=== PATIENT | male | born 1965 | race Two or more races ===

== ENCOUNTER 2020-01-13 11:52 | Day surgery (SDC) | payer OTHER ==
[2020-01-13] VITALS (11 sets, daily range): BP systolic 93–145; BP diastolic 66–94
[~2020-01-13] VITALS: Ht 180.3 cm; Wt 81.6 kg
--- NOTE | 2020-01-13 07:20 | Pre-Procedure Note/Attestation ---
Pre-Procedure Note/Attestation Complete Prior to Procedure Planned Procedure: right Procedure Narrative: wrist orif Indications for Procedure Pre-Operative Diagnosis: right wrist fracture Attestation I attest that I discussed the nature of the procedure; its benefits; risks and complications; and alternatives (and the risks and benefits of such alternatives ), prior to the procedure, with the patient (or the patient's legal artist's representative). I attest that, if there was a reasonable possibility of needing a blood transfusion, the patient (or the patient's legal artist's representative) was given the [facility] standardized written summary, pursuant to the Prakash Edmar Blood Safety Act ([place] Health and Safety Code # 1645, as amended). I attest that I re-evaluated the patient just prior to the surgery and that there has been no change in the patient's H&P, except as documented below: Dany Dunn MD January 13, 2020 07:20
--- NOTE | 2020-01-13 07:21 | Operative Note - PDOC ---
Operative Note Operative Note Pre-op Diagnosis: right wrist fracture Procedure: see op report Post-op Diagnosis: same as pre-op plus Operative Findings: consistent w/pre-op dx studies Anesthesia: regional Specimen: none Complications: none Condition: stable Estimated Blood Loss: none Implant(s) used?: Yes Dany Dunn MD January 13, 2020 07:21
[~2020-01-13 11:52] MED LIST: D5 1/2NS 1,000 ML IV SCH; HYDROcodone/Acetamin 5/325 tab ORAL PRN; HYDROmorphone 1mg/ml Carpuject SUBQ PRN; Tylenol #3 tab (300mg/30mg) ORAL PRN; ceFAZolin 1gm IVPB IVPB ONE; celeBREX 200mg Cap **SURGERY PATIENTS ONLY ORAL ONE; oxyCONTIN 20mg tab ORAL ONE
[2020-01-13] MEDS ORDERED: ALEVE220 MG PO (12:43)
[2020-01-13] MEDS ORDERED: FISH OIL CAP1000 MG ORAL (12:46)
[2020-01-13] MEDS ORDERED: MAGNESIUM400 M2 PO (12:46)
[2020-01-13] MEDS ORDERED: celeBREX 200mg Cap **SURGERY PATIENTS ONLY ORAL ONE (13:18)
[2020-01-13] MEDS ORDERED: oxyCONTIN 20mg tab ORAL ONE (13:18)
[2020-01-13] MEDS ORDERED: Midazolam 2mg/2ml Inj ONE (15:02)
[2020-01-13] MEDS ORDERED: Lidocaine 1% MPF 10mg/ml 5ml ONE (15:02)
[2020-01-13] MEDS ORDERED: fentaNYL 100 mcg/2 mL IV ONE ×2 (15:02→16:27)
[2020-01-13] MEDS ORDERED: Bupivacaine 0.25% Inj 30ml INJ ONE ×2 (15:35→15:39)
--- NOTE | 2020-01-13 15:39 | Anethesia Preoperative Eval ---
Anesthesia Pre-op PMH/ROS General Date of Evaluation: January 13, 2020 Time of Evaluation: 15:38 Anesthesiologist: nilay ASA Score: ASA 2 Mallampati Score Class I : Soft palate, uvula, fauces, pillars visible Class II: Soft palate, uvula, fauces visible Class III: Soft palate, base of uvula visible Class IV: Only hard plate visible Mallampati Classification: Class II Surgeon: micki Diagnosis: wrist fx Surgical Procedure: Right wrist ORIF Social History: smoking, current smoker Family History: no anesthesia problems Allergies: Coded Allergies: No Known Allergies (Unverified , 01/13/20) Medications: see eMAR Patient NPO?: Yes NPO Date: January 13, 2020 NPO Time: 00:01 Past Medical History Cardiovascular: Denies: HTN, CAD, RI, valve dz, arrhythmia, other Pulmonary: Denies: asthma, COPD, SHAY, other Gastrointestinal/Genitourinary: Reports: GERD; Denies: CRI, ESRD, other Neurologic/Psychiatric: Denies: dementia, CVA, depression/anxiety, TIA, other Endocrine: Denies: DM, hypothyroidism, steroids, other HEENT: Denies: cataract (L), cataract (R), glaucoma, YSLETA DEL SUR (L), YSLETA DEL SUR (R), other Hematology/Immune: Denies: anemia, DVT, bleeding disorder, other Other: obesity PSxH Narrative: leg surgery - no complication Anesthesia Pre-op Phys. Exam Physician Exam Last Vital Signs Date Time Temp Pulse Resp B/P (MAP) Pulse Ox O2 Delivery O2 Flow Rate FiO2 01/13/20 12:40 Room Air 01/13/20 12:35 97.0 63 18 137/87 99 Constitutional: NAD Neurologic: CN 2-12 intact Cardiovascular: RRR Respiratory: CTA Gastrointestinal: S/NT/ND Airway Exam Mallampati Classification 2 Mallampati Score: Class II MO: full ROM: full Dentures: no upper, no lower Anesthesia Pre-op A/P Studies Pre-op Studies: EKG - sr Risk Assessment & Plan Assessment: denies sob Plan: general and axilllary block Status Change Before Surgery: No Pre-Antibiotics Drug: ancef Time Given: 16:00 Karlie Cosby CRNA January 13, 2020 15:39
[2020-01-13] MEDS ORDERED: Metoclopramide 10mg/2ml Inj IVP PRN (15:45)
[2020-01-13] MEDS ORDERED: Labetalol 5mg/ml 20ml vial IV PRN (15:45)
[2020-01-13] MEDS ORDERED: fentaNYL 100 mcg/2 mL IV PRN (15:45)
[2020-01-13] MEDS ORDERED: Hydromorphone 0.5mg/0.5ml inj IVP PRN (15:45)
[2020-01-13] MEDS ORDERED: DiphenhydrAMINE 50mg/ml Inj IVP PRN (15:45)
[2020-01-13] MEDS ORDERED: Sterile Water Irrig 1000ml IRRIG ONE (16:00)
[2020-01-13] MEDS ORDERED: LR 1000ml ONE (16:00)
[2020-01-13] MEDS ORDERED: NS Irrig 1000ml IRRIG ONE (16:44)
[2020-01-13] MEDS ORDERED: Ropivacaine 5mg/ml Vial 20ml INJ ONE (17:03)
[2020-01-13] MEDS ORDERED: Metoclopramide 10mg/2ml Inj ONE (17:03)
--- NOTE | 2020-01-13 18:28 | Immediate Post-Op Evaluation ---
Immediate Post-Op Evalulation Immediate Post-Op Evalulation Procedure: wrist ORIF Date of Evaluation: January 13, 2020 Time of Evaluation: 18:25 IV Fluids: 500 Blood Pressure Systolic: 124 Blood Pressure Diastolic: 66 Pulse Rate: 70 Respiratory Rate: 14 O2 Sat by Pulse Oximetry: 99 Temperature (Fahrenheit): 97.3 Nausea: No Vomiting: No Complications none Patient Status: awake, reacts, patent Hydration Status: adequate Drug: ancef Given Within 1 Hr of Incision: Yes Time Given: 15:35 Karlie Cosby CRNA January 13, 2020 18:28
[2020-01-13] MEDS ORDERED: Acetaminophen (Non formulary) 100 ML IV ONE (18:30)
--- NOTE | 2020-01-14 01:30 | Operative Note - Dictated ---
DATE OF OPERATION: 01/13/2020 POSTOPERATIVE DIAGNOSIS: Right comminuted intra-articular distal radius fracture with dorsal angulation. POSTOPERATIVE DIAGNOSIS: Right comminuted intra-articular distal radius fracture with dorsal angulation. PROCEDURES: 1. Open reduction and internal fixation, right distal radius, with plate and screw fixation. 2. 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 SURGEON: Dany Dunn MD ANESTHESIA: General. INDICATION FOR PROCEDURE: The patient is a pleasant 54-year-old gentleman with a displaced intra-articular distal radius fracture, indicative of operative fixation. Risks, limitations, expectations, and complications of procedure were discussed in detail including continued pain, need for future surgery, risk of anesthesia, medical complications, DVT, PE, and mortality risks. All questions were addressed. DESCRIPTION OF PROCEDURE: After informed consent obtained, patient was taken to the operating room. Patient was placed under general anesthesia. Right arm was prepped and draped in a sterile manner. Time-out was performed. Standard anterior volar approach to the distal radius was performed. Once the volar surface of the radius was identified, the previous fracture site was identified. There is a already callus formation identified. At this point, using multiple techniques, the previous fracture site was teased out using combination of multiple instruments, volar osteotomy of distal radius was performed. Given the fact that this was 3 weeks old, I was able to obtain neutral alignment just relatively acceptable particularly given the fact that it was a comminuted fracture. At this point, [employer] plate was then selected and placed. It was difficult because the fracture site was right where the trajectory of the screws were. The plate was placed as distal as possible and make sure it was right on the subchondral bone. Additional cortical shaft screws were then placed. At this point, there was slight motion of the distal fracture site, loss of maybe fixation of the volar fragment and therefore 2 K-wires were placed percutaneous to the radial styloid into the fracture, into the shaft of the radius. Once these 2 K-wires were placed, there was no further motion along the distal fracture fragment. At this point, any attempt to further place the plate distal would violate the subcortical bone. Given the comminuted nature of this fracture, concern was that we lose acceptable fixation and reduction for minmal improvement. Therefore, it was felt that this was adequate. Particularly given the complexity of the fracture pattern and chronicity of the injury, at this point, the wound was copiously irrigated. The skin was closed using 3-0 Vicryl and 3-0 Monocryl sutures. Posterior splint was applied. Patient was awoken and taken to recovery room with stable vital signs. ESTIMATED BLOOD LOSS: None. COMPLICATIONS: None. SPECIMENS: None. IMPLANTS: Include [employer] volar plate. Dany Dunn M.D. DR: FLAKO JOB#: [id number] CC: FABIO
[2020-01-16 07:37] VITALS: BP 148/77
--- NOTE | 2020-01-16 07:37 | 48 Hour Post Anesthesia Eval ---
Post Anesthesia Evaluation Procedure: wrist ORIF Date of Evaluation: Jan 16, 2020 Time of Evaluation: 07:35 Blood Pressure Systolic: 148 0: 77 Pulse Rate: 65 Respiratory Rate: 14 O2 Sat by Pulse Oximetry: 98 Airway: patent Nausea: No Vomiting: No Pain Intensity: 2 Hydration Status: adequate Cardiopulmonary Status: stable Mental Status/LOC: patient returned to baseline Post-Anesthesia Complications: none Follow-up care needed: N/A Karlie Cosby CRNA Jan 16, 2020 07:37
--- NOTE | 2020-01-16 11:15 | Diagnostic Imaging Report ---
INDICATION: Pain, intraoperative TECHNIQUE: Intraoperative imaging Fluoroscopy time: 80.8 seconds Total dose: 0.28108 mGym2 Total number of images: 3 COMPARISON: None FINDINGS: 6 intraoperative images document surgical repair of distal radial fracture with sideplate and screws and K wires. IMPRESSION: Intraoperative imaging, as described
--- NOTE | 2020-02-06 13:20 | Diagnostic Imaging Report ---
INDICATION: Pain, intraoperative TECHNIQUE: Intraoperative imaging Fluoroscopy time: 80.8 seconds Total dose: 0.16737 mGym2 Total number of images: 3 COMPARISON: None FINDINGS: 6 intraoperative images document surgical repair of distal radial fracture with sideplate and screws and K wires. IMPRESSION: Intraoperative imaging, as described
== END 2020-01-13 20:30 | disposition home or self-care (01) ==
LOC: SUR 11:52
DX: S52.571A Other intraarticular fracture of lower end of right radius, initial encounter for closed fracture (principal); F17.200 Nicotine dependence, unspecified, uncomplicated; K21.9 Gastro-esophageal reflux disease without esophagitis; E66.9 Obesity, unspecified; Z68.25 Body mass index [BMI] 25.0-25.9, adult; X58.XXXA Exposure to other specified factors, initial encounter; Y92.9 Unspecified place or not applicable
CPT/HCPCS: 25350; 25608; 73110; 76000; 94003; C1713; J0131; J1170; J2250; J2405; J2704; J2765; J2795; J3010; J3490; J7120; 94150